=== PATIENT | female | born 1960 | race Caucasian/White ===

== ENCOUNTER 2021-10-11 17:05 | Emergency (ER) | payer BC, SELFPAY ==
[2021-10-11 17:12] VITALS: BP 149/73; PULSE 100; RESP 20; TEMP 36.9; O2SAT 95
--- NOTE | 2021-10-11 17:20 | ECG_ITS ---
Measurements Intervals [place] Rate: 95 P: 73 NH: 144 QRS: 47 QRSD: 90 T: 52 QT: 369 QTc: 466 Interpretive Statements SINUS RHYTHM POSSIBLE LEFT ATRIAL ENLARGEMENT BASELINE ARTIFACT- II, III, AVR, AVL, AVF, V4-V6 BORDERLINE ECG Electronically Signed On 10-12-2021 7:52:21 [employer] by Matt Torres D.O.
--- NOTE | 2021-10-11 17:27 | ED.CHESTPAIN ---
HPI - Chest Pain General Chief Complaint: Chest Pain Stated Complaint: chest pain and hard to breathe Time Seen by Provider: 10/11/21 17:27 Source: patient and family History of Present Illness HPI narrative: Patient presents with a 2-day history of left-sided chest pain. Patient states the pain is worse when she takes a deep breath. Patient reports a stabbing intermittent left-sided chest pain. Patient states in 2005 she had a left breast mastectomy with complications and ended up with pericarditis and a chest tube at that time. Patient states she called her former hand today and was instructed that she needs to schedule a stress test. MD complaint: chest pain and chest heaviness Related Data Allergies Allergy/AdvReac Type Severity Reaction Status Date / Time Sulfa (Sulfonamide Allergy Redness of Verified 10/11/21 17:20 Antibiotics) Skin Review of Systems Review of Systems: CONSTITUTIONAL: Denies fever, chills, or sweats. EYES: Denies visual changes, redness, or discharge. ENT: Denies rhinorrhea, congestion, sore throat, or otalgia. CARDIOVASCULAR: Deniespalpitations, or edema. Reports left-sided chest pain RESPIRATORY: Denies cough or dyspnea. GASTROINTESTINAL: Denies abdominal pain, nausea, vomiting, or diarrhea. GENITOURINARY: Denies dysuria or hematuria. SKIN: Denies rash or itching. MUSCULOSKELETAL: Denies back pain, joint pain, or myalgia. NEUROLOGIC: Denies headache, numbness, or weakness. PSYCHIATRIC: Denies anxiety or depression. PMFSH Comments At time of signature, agree with nursing past medical, surgical, social and family history. There is no relevant family history pertinent to the presenting complaint Exam Narrative: GENERAL: Well-appearing, well-nourished, and in no acute distress. HEAD: Normocephalic, atraumatic. EYES: PERRLA and EOMI. ENT: Nares clear, no rhinorrhea or epistaxis. Mucous membranes moist. NECK: Supple. CHEST: Clear to auscultation. No respiratory distress. Old mastectomy scar to left side of chest left-sided chest pain worse with inspiration HEART: Regular rate and rhythm. No murmur heard. Normal peripheral pulses. ABDOMEN: Soft, nontender, nondistended, normal active bowel sounds. EXTREMITIES: Normal range of motion. No edema. SKIN: Warm, dry, no rash. NEURO: No focal deficits. Alert and oriented x3. Otis Coma Scale Eye Opening: Spontaneous 4 [place] Coma Scale Motor: Obeys Commands 6 [place] Coma Scale Verbal: Oriented 5 [place] Coma Scale Total 15 Course Course Level of Care: Express Care Visit Vital Signs Vital signs: Vital Signs Temperature 36.9 C 10/11/21 17:12 Pulse Rate 100 10/11/21 17:12 Respiratory Rate 10/11/21 17:12 Blood Pressure 149/73 H 10/11/21 17:12 Pulse Oximetry 95 10/11/21 17:12 Temperature 36.9 C 10/11/21 17:12 Pulse Rate 100 10/11/21 17:12 Respiratory Rate 10/11/21 17:12 Blood Pressure 149/73 H 10/11/21 17:12 Pulse Oximetry 95 10/11/21 17:12 Addressed elevated BP today. Today's blood pressure higher than recommended range. Discussed importance of follow -up with PCP and possible custodial effects/cardiovascular events related to HTN. Currently patient denies headache, dizziness, vision changes, CP or shortness of breath. Critical dx considered and discussed with pt. Educated patient on red flag s/s and to go to ED if s/s occur. Discussed with pt when to return to Express Care or primary care provider. Pt gave verbal undertstanding, all questions were answered, and pt was agreeable to plan Transfer Transfered to: [facility] ([place]) Transportation: ALS Transfer rationale: Higher level of care Accepting physician: Freddy SANCHEZ Transfer comments: Patient agreeable to be transferred by ambulance to [facility] emergency room report given and transfer accepted MDM - Chest Pain Differential Diagnosis Differential diagnosis: Likely fracture of rib, pneumothorax, stable angina, unstable angina pectoris, a
== END 2021-10-11 17:40 | disposition short-term general hospital (02) ==
PROVIDERS: Emergency Provider Nurse Practitioner Family; PCP Internal Medicine Medical Oncology
DX: R07.9 Chest pain, unspecified (principal); R07.89 Other chest pain; I10 Essential (primary) hypertension; Z85.3 Personal history of malignant neoplasm of breast; Z90.12 Acquired absence of left breast and nipple
CPT/HCPCS: 93005; 99213; G0463

== ENCOUNTER 2021-11-01 13:19 | Outpatient (CLI) | payer BC, SELFPAY ==
--- NOTE | ~2021-11-01 | PE_ITS ---
EXAMINATION: PET skull to mid thigh DATE: 11/01/2021 15:55 INDICATION: Malignant neoplasm of the areola of the left breast. TECHNIQUE: Blood glucose level was 94 mg/dL. 9.036 mCi of 18-fluorodeoxyglucose (18-FDG) was administ ered i.v. Low dose computed tomography (CT) images were acquired from the base of the brain to the pr oximal thighs for attenuation correction and anatomic localization. Positron emission tomography (PET ) images were acquired in the same distribution beginning 66 minutes after injection. Images includin g fused PET/CT images were reconstructed in axial, coronal, and sagittal planes. Automated exposure c ontrol technique was employed. The dose-length product was 931.24 mGy-cm. COMPARISON: None FINDINGS: Head/neck: There is symmetric increased activity in the oral cavity, palatine tonsils, parotid glands, submandi bular glands, laryngeal muscles and ocular muscles without CT correlate, likely physiologic. The left thyroid lobe is not visualized and is either developmentally or surgically absent. No pathologically enlarged cervical lymphadenopathy or suspicious foci of increased FDG uptake in the visualized head or neck. Chest: Postoperative change of prior left mastectomy. Surgical clip along the left infraspinatus muscle. Sma ll region of peripheral consolidation along the anterolateral lingula some associated discoid atelect asis and architectural distortion which could represent sequela of radiation fibrosis in the appropri ate clinical setting. There is minimal associated FDG activity with maximal SUV of 1.9. Additional mi ld linear discoid atelectasis at the right middle lobe. Calcified right upper lobe nodule along the m ajor fissure consistent with old granulomatous disease. No pneumonia, suspicious pulmonary nodules or pleural effusion. Heart size is normal. No pericardial effusion. Small sliding-type hiatal hernia. N o pathologically enlarged or FDG avid thoracic lymphadenopathy. Abdomen/pelvis/proximal thighs: Physiologic renal accumulation and excretion of FDG activity in the kidneys, bladder and along portio ns of ureters. Normal degree and heterogenous pattern of increased uptake throughout the liver withou t radiologic correlate or dominant FDG avid lesion. Calcite gallstone within the normal-appearing gal lbladder. The pancreas, spleen and bilateral adrenal glands are normal. Mild uptake scattered through out the bowels without radiologic correlate, also likely physiologic. The uterus is not identified an d has likely been surgically resected. No other abnormal foci of increased FDG uptake or pathologi to enlarged lymphadenopathy in the abdomen, pelvis or proximal thighs. Musculoskeletal: Mild scattered degenerative skeletal changes. Small sclerotic bone islands at the bilateral acetabula . No other suspicious lytic, blastic or FDG avid bone lesions. IMPRESSION: 1. Minimal FDG activity such with a region of likely pleural parenchymal scarring at the periphery of the lingula underlying a prior left mastectomy suggesting this may represent sequela of radiation fi brosis. Correlate with clinical history and with any prior outside imaging. If long-term stability ca nnot be confirmed would consider 3-6 follow-up low-dose chest CT. 2. No evident metastatic disease. Reviewed, dictated and finalized at location A. [employer] IMPRESSION: 1. Minimal FDG activity such with a region of likely pleural parenchymal scarri ng at the periphery of the lingula underlying a prior left mastectomy suggestin g this may represent sequela of radiation fibrosis. Correlate with clinical his tory and with any prior outside imaging. If long-term stability cannot be confi rmed would consider 3-6 follow-up low-dose chest CT. 2. No evident metastatic dis
[2021-11-01 14:16] LABS: Glucose Point of Care 94 mg/dl (65-105)
== END 2021-11-01 13:20 | disposition home or self-care (01) ==
PROVIDERS: PCP Internal Medicine; Visit Provider Internal Medicine Medical Oncology
DX: C50.012 Malignant neoplasm of nipple and areola, left female breast (principal); Z17.0 Estrogen receptor positive status [ER+]; R91.8 Other nonspecific abnormal finding of lung field
CPT/HCPCS: 78815; A9552